=== PATIENT | male | born 1975 | race Hispanic/Latino ===

== ENCOUNTER 2017-08-14 06:42 | Day surgery (SDC) | payer BC ==
[~2017-08-14] VITALS: Ht 175.3 cm; Wt 86.2 kg
[2017-08-14] MEDS ORDERED: MOTRIN800 MG PO (08:38)
[2017-08-14 08:51] VITALS: BP 102/67
== END 2017-08-14 09:09 | disposition home or self-care (01) | DRG 572 ==
LOC: ORM 06:42
PROVIDERS: ATTEND Surgery
PROC: 0JBF0ZZ Excision of Left Upper Arm Subcutaneous Tissue and Fascia, Open Approach (ICD-10-PCS; principal; 2017-08-14)
DX: D17.22 Benign lipomatous neoplasm of skin and subcutaneous tissue of left arm (principal)

== ENCOUNTER 2023-03-09 15:11 | Emergency (ER) | payer BC ==
[2023-03-09] VITALS (8 sets, daily range): BP systolic 114–148; BP diastolic 72–90
[~2023-03-09] VITALS: Ht 175.3 cm; Wt 102.0 kg
[~2023-03-09 15:11] MED LIST: MOTRIN800 MG PO
[2023-03-09 15:58] LABS: BASO% 1.3 % (0-3); EOS% 2.5 % (0-8); HEMATOCRIT 41.1 % (39.0-50.0); HEMOGLOBIN 12.7 g/dl (14.0-18.0); IMMATURE GRANULOCYTES 0.1 % (0.0-5.0); LYMPH% 29.8 % (15-41); MEAN CELL VOLUME 79.3 fL CALC (80.0-100.0); MEAN CORPUSCULAR HGB 24.5 pG CALC (26.0-32.0); MEAN CORPUSCULAR HGB CONC 30.9 g/dL CAL (32.0-36.0); MONO% 8.7 % (2-13); NEUT# 3.84 thou/uL (1.82-7.42); NEUT% 57.6 % (42-76); RED BLOOD COUNT 5.18 mill/uL (4.70-6.10); RED CELL DISTRI WIDTH 14.1 % (11.5-15.5)
[2023-03-09 16:10] LABS: ALBUMIN 4.1 g/dL (3.2-5.0); ALKALINE PHOSPHATASE 47 u/l (38-126); ANION GAP 14 (6-22 (CALC)); BILIRUBIN, TOTAL 0.7 mg/dL (0.2-1.3); BUN 12 mg/dL (9-20); BUN/CREATININE RATIO 10 (12-20 (CALC)); CARBON DIOXIDE 25 mmol/l (22-30); CHLORIDE 103 mmol/l (95-108); CREATININE 1.2 mg/dL (0.7-1.3); GFR FOR AFR.AMER. > 60 ML/MIN (>=60 (CALC)); GFR OTHER RACES > 60 ML/MIN (>=60 (CALC)); POTASSIUM 4.2 mmol/l (3.5-5.1); SGOT/AST 42 u/l (17-59); SODIUM 138 mmol/l (137-146); TOTAL PROTEIN 7.2 g/dL (6.3-8.2)
== END 2023-03-09 17:07 | disposition home or self-care (01) | DRG 204 ==
LOC: ED 15:11
PROVIDERS: Family Medicine
DX: R06.02 Shortness of breath (principal)